=== PATIENT | female | born 1965 | race Caucasian/White ===

== ENCOUNTER 2017-10-07 17:11 | Emergency (ER) | payer OTHER ==
[~2017-10-07] VITALS: Ht 160 cm; Wt 71.9 kg
[~2017-10-07 17:11] MED LIST: ASCORBIC ACID500 M3 PO; ATIVAN0.5 MG PO; BIOTIN5 MG PO; CALCIUM 500 MG1 EACH PO; DOCUSATE SODIU100 MG PO; IRON325 M1 PO; VITAMIN D31000 UNIT PO; WELLBUTRIN XL150 MG PO
[2017-10-07 19:03] VITALS: BP 143/90
== END 2017-10-07 19:04 | disposition home or self-care (01) ==
LOC: EME 17:11
DX: F43.20 Adjustment disorder, unspecified (principal); F32.2 Major depressive disorder, single episode, severe without psychotic features; K21.9 Gastro-esophageal reflux disease without esophagitis; F41.9 Anxiety disorder, unspecified; Z87.891 Personal history of nicotine dependence
CPT/HCPCS: 90839; 99281; 99283

== ENCOUNTER → 2018-03-31 | Outpatient (CLI) | payer OTHER | END | disposition home or self-care (01) | LOC: CDC 12:57 | DX: Z01.810 Encounter for preprocedural cardiovascular examination (principal); H35.341 Macular cyst, hole, or pseudohole, right eye; H43.391 Other vitreous opacities, right eye | CPT/HCPCS: 93000 ==

== ENCOUNTER 2018-04-24 18:39 | Emergency (ER) | payer OTHER ==
[~2018-04-24] VITALS: Ht 160 cm; Wt 75.6 kg
[2018-04-24 19:32] LABS: HEMATOCRIT 34.9 % (36.0-46.0); HEMOGLOBIN 12.2 G/DL (11.9-15.5); MCV 91.6 FL (83-99); PLATELET COUNT 277 K/uL (156-360); RBC DIS.WIDTH-SD 40.4 % (39-53); RED BLOOD COUNT 3.81 M/uL (3.80-5.20); WHITE BLOOD COUNT 10.9 K/uL (4.1-10.2)
[2018-04-24 19:52] LABS: CHLORIDE 105 mEq/L (99-109); POTASSIUM 4.4 mEq/L (3.7-5.4); SODIUM 138 mEq/L (136-147)
[2018-04-24 19:54] LABS: GLUCOSE 81 mg/dL (70-99)
[2018-04-24 19:55] LABS: TOTAL PROTEIN 6.6 g/dL (6.4-8.3)
[2018-04-24 19:56] LABS: TOTAL BILIRUBIN 0.3 mg/dL (0.0-1.0)
[2018-04-24 19:58] LABS: ALKALINE PHOSPHATASE 83 IU/L (3-129); CREATININE 0.7 mg/dL (0.6-1.3); GFR ESTIMATE (CALCULATED) > 59 mL/min/
[2018-04-24 19:59] LABS: UREA NITROGEN (BUN) 18 mg/dL (9-23)
[2018-04-24 20:00] LABS: AST (GOT) 14 IU/L (2-34)
[2018-04-24 20:01] LABS: ALT (GPT) 9 IU/L (3-49)
[2018-04-24 20:32] LABS: APPEARANCE HAZY ((CLEAR)); COLOR BLOODY ((YELLOW))
[2018-04-24 20:33] LABS: BILIRUBIN NEGATIVE; BLOOD LARGE; GLUCOSE (STRIP) NEGATIVE; KETONES NEGATIVE; LEUKOCYTES NEGATIVE; NITRITE NEGATIVE; PROTEIN (STRIP) 100; UROBILINOGEN 0.2 MG/DL (0.2-1.0)
[2018-04-24 20:35] LABS: RED BLOOD CELLS TNTC /HPF (0-5); UCUL ADDED? YES
[2018-04-24 20:49] VITALS: BP 111/87
== END 2018-04-24 20:55 | disposition home or self-care (01) ==
LOC: EME 18:39
PROVIDERS: Nurse Practitioner Family
DX: N93.9 Abnormal uterine and vaginal bleeding, unspecified (principal); D64.9 Anemia, unspecified; F32.9 Major depressive disorder, single episode, unspecified; K21.9 Gastro-esophageal reflux disease without esophagitis; F41.9 Anxiety disorder, unspecified; Z87.891 Personal history of nicotine dependence
CPT/HCPCS: 80053; 81003; 85027; 86850; 86900; 86901; 87086; 99281; 99284; J7030